=== PATIENT | male | born 2000 | race Caucasian/White ===

== ENCOUNTER 2025-03-25 19:55 | Emergency (ER) | payer SELFPAY ==
[~2025-03-25] VITALS: Ht 167.6 cm; Wt 68.6 kg
[2025-03-25] MEDS: PROPARACAINE HCL 0.5% 15 ML OPHTHALMIC SOLUTION OU ONE (20:12)
[2025-03-25] MEDS: FLUORESCEIN SODIUM 1 MG STRIP OU ONE (20:12)
[2025-03-25 20:18] VITALS: BP 139/89; PULSE 88; RESP 18; TEMP 97.7; O2SAT 99
[2025-03-25] MEDS: OFLOXACIN 0.3% 5 ML OPHTHALMIC SOLUTION OU ONE (20:47)
== END 2025-03-25 21:09 | disposition home or self-care (01) ==
LOC: EMS 20:03
DX: T65.891A Toxic effect of other specified substances, accidental (unintentional), initial encounter (principal); Y92.89 Other specified places as the place of occurrence of the external cause
CPT/HCPCS: 99283; 99284

== ENCOUNTER 2025-11-02 18:06 | Emergency (ER) | payer MEDICAID ==
[~2025-11-02] VITALS: Ht 165.1 cm; Wt 76.4 kg
[2025-11-02 18:25] VITALS: TEMP 97.7
[2025-11-02] MEDS ORDERED: LIDOCAINE 1% 10 ML VIAL SQ ONE (18:30)
[2025-11-02 19:25] LABS: PLATELET COUNT (AUTO) 223 K/uL (150-450); RED BLOOD CELL COUNT(AUTO) 4.87 MIL/uL (4.50-5.90); RED CELL DISTRIBUTION WIDTH 13.2 % (11.5-14.5); WHITE BLOOD COUNT (AUTO) 6.8 K/uL (4.5-11.0)
[2025-11-02] MEDS: CEFEPIME HCL 2 GM in DEXTROSE 5%-WATER 50 ML IV ONE (19:31)
[2025-11-02] MEDS: VANCOMYCIN 1.25 GM/WATER(PEG) 250 ML IV ONE (19:32)
[2025-11-02] MEDS: MORPHINE SULFATE 4 MG/ML SYRINGE IVP ONE (19:32)
[2025-11-02 19:33] LABS: CALCIUM, TOTAL 8.7 mg/dL (8.8-10.5); CREATININE 1.00 mg/dL (0.60-1.30); GLOMERULAR FILTR. RATE CALC > 60 mL/min (>60); GLUCOSE,RANDOM 91 mg/dL (70-110); SODIUM SERUM 140 mmol/L (136-145); UREA NITROGEN, BLOOD 12 mg/dL (7-18)
[2025-11-02] MEDS: PERTUSS(ACELL),DIPH,TET/PF 0.5 ML SYRINGE [ADULT] IM. ONE (19:33)
[2025-11-02 21:19] VITALS: BP 133/79; PULSE 74; RESP 18; O2SAT 100
== END 2025-11-02 23:49 | disposition short-term general hospital (02) ==
LOC: EMS 18:06
DX: S61.012A Laceration without foreign body of left thumb without damage to nail, initial encounter (principal); W45.8XXA Other foreign body or object entering through skin, initial encounter; Y93.89 Activity, other specified; Y92.89 Other specified places as the place of occurrence of the external cause; Y99.8 Other external cause status
CPT/HCPCS: 99285; 96365; 96366; 96375; 80048; 85025; 36415; 73140; 90715; 90471; 29130; 96368; J0692; J2270; J7060; J3490